=== PATIENT | female | born 1945 | race Caucasian/White ===

== ENCOUNTER 2016-08-19 12:28 | Emergency (ER) | payer MEDICARE, OTHER ==
[~2016-08-19] VITALS: Ht 167.6 cm; Wt 86.2 kg
[2016-08-19 12:38] VITALS: BP 139/60
[2016-08-19] MEDS ORDERED: IOHEXOL 350 MG/ML 100ML IJ ONE (12:38)
[2016-08-19] MEDS ORDERED: HEPARIN IN NS 1000Units/500mL 0 ML ONE (12:38)
[2016-08-19] MEDS ORDERED: LIDOCAINE 2%HCL (LOCAL ANESTH.) INJ 20ML MDV ONE (12:38)
[2016-08-19] MEDS ORDERED: HEPARIN SODIUM (PORCINE) 5000 UNITS/ML 1ML VIAL ONE (12:39)
[2016-08-19] MEDS ORDERED: NOREPINEPHRINE BITARTRATE 250 ML IV ONE (12:39)
[2016-08-19] MEDS ORDERED: SODIUM CHLORIDE 0.9% 500 ML IVB ONE (12:43)
[2016-08-19] MEDS ORDERED: SODIUM BICARBONATE 8.4 % INJ 50ML VIAL IV ONE (12:45)
[2016-08-19] MEDS ORDERED: HEPARIN 1,000 UNITS/ml 1ML VIAL IV ONE (12:45)
[2016-08-19] MEDS ORDERED: SODIUM BICARBONATE 8.4% INJ 50ML SYRINGE ONE (12:51)
[2016-08-19] MEDS ORDERED: SODIUM BICARBONATE 8.4% INJ 50ML SYRINGE IV ONE (17:49)
[2016-08-19] MEDS ORDERED: CALCIUM CHLOR(10%) 100MG/ML 10ML SYRINGE IV ONE (17:49)
[2016-08-19] MEDS ORDERED: EPINEPHrine HCL 1 MG/10 ML SYRG IV ONE (17:49)
[2016-08-19] MEDS ORDERED: AMIODARONE HCL (50 MG/ ML) 3 ML VIAL IV ONE (17:49)
== END 2016-08-19 15:34 | disposition expired ==
LOC: ER 12:30
DX: I46.9 Cardiac arrest, cause unspecified (principal); E78.5 Hyperlipidemia, unspecified; Z88.8 Allergy status to other drugs, medicaments and biological substances
CPT/HCPCS: 36415; 71010; 82962; 92950; 93005; 99291; J0171; J0282; J1644; J3490